=== PATIENT | female | born 1975 | race Caucasian/White ===

== ENCOUNTER 2021-10-07 17:30 | Emergency (ER) | payer MEDICAID ==
[~2021-10-07] VITALS: Ht 165.1 cm; Wt 80.0 kg
[2021-10-07] MEDS ORDERED: ATOR10TA84 PO (17:36)
[2021-10-07] MEDS ORDERED: LISI-892 PO (17:36)
[2021-10-07] MEDS ORDERED: LEVO25TA9 PO (17:36)
[2021-10-07] MEDS ORDERED: METF-1211 PO (17:36)
[2021-10-07] MEDS ORDERED: PANT-31 PO (17:36)
[2021-10-07 18:36] LABS: BASOPHILS % (AUTO) 0.4 % (0.0-2.0); EOSINOPHILS % (AUTO) 1.3 % (1.0-6.0); HEMATOCRIT 37.1 % (36-46); HEMOGLOBIN 11.9 g/dL (12.0-16.0); LYMPHOCYTES # (AUTO) 1.8 K/uL (1.0-4.8); LYMPHOCYTES % (AUTO) 22.5 % (22.0-44.0); MEAN CORPUSCULAR HEMOGLOBIN 25.7 pg (26.0-34.0); MEAN CORPUSCULAR HGB CONC 32.2 G/dL (31.0-37.0); MEAN CORPUSCULAR VOLUME 80 fL (80-100); MONOCYTES # (AUTO) 0.6 K/uL (0.1-1.0); MONOCYTES % (AUTO) 7.5 % (2.0-9.0); NEUTROPHILS # (AUTO) 5.4 K/uL (1.8-7.7); NEUTROPHILS % (AUTO) 68.3 % (40.0-70.0); PLATELET COUNT (AUTO) 321 K/uL (150-450); RED BLOOD CELL COUNT(AUTO) 4.64 MIL/uL (4.00-5.20); RED CELL DISTRIBUTION WIDTH 19.7 % (11.5-14.5)
[2021-10-07 18:42] LABS: APPEARANCE,URINE CLEAR (CLEAR); BILIRUBIN,URINE NEGATIVE (NEGATIVE); GLUCOSE, URINE (UA) NEGATIVE (NEGATIVE); KETONES,URINE NEGATIVE (NEGATIVE); LEUKOCYTE ESTERASE ,URINE NEGATIVE (NEGATIVE); NITRATE,URINE NEGATIVE (NEGATIVE); OCCULT BLOOD,URINE NEGATIVE (NEGATIVE); PH,URINE 5.5 (5.0-8.0); PROTEIN,URINE TRACE mg/dL (NEGATIVE); SPECIFIC GRAVITIY, URINE 1.019 (1.003-1.030); UROBILINOGEN,URINE <=1.0 mg/dL (<=1.0)
[2021-10-07 18:48] LABS: ANION GAP 9 mmol/L (8-16); CALCIUM, TOTAL 9.7 mg/dL (8.8-10.5); CARBON DIOXIDE 27 mmol/L (22-29); CHLORIDE 102 mmol/L (98-107); CREATININE 0.65 mg/dL (0.60-1.30); GLUCOSE,RANDOM 142 mg/dL (70-110); SODIUM SERUM 138 mmol/L (136-145); UREA NITROGEN, BLOOD 7 mg/dL (7-18)
[2021-10-07 18:52] LABS: GLOMERULAR FILTR. RATE CALC > 60 mL/min (>60)
[2021-10-07 18:53] LABS: ALANINE AMINOTRANSFERASE 46 U/L (12-78); ALBUMIN 3.9 g/dL (3.4-5.0); ALKALINE PHOSPHATASE 108 U/L (46-116); ASPARTATE AMINOTRANSFERASE 40 U/L (15-37); BILIRUBIN,TOTAL 0.2 mg/dL (0.1-1.0); LIPASE 131 U/L (73-393)
[2021-10-07 19:04] LABS: BACTERIA,URINE None Seen /HPF (None Seen); RBC,URINE None Seen /HPF (0-2); WBC,URINE None Seen /HPF (0-5)
[2021-10-07] MEDS ORDERED: PB/HYOSCY/ATR/SCOP/LIDO/MAALOX 55 ML BOTTLE PO ONE (19:15)
[2021-10-07 21:04] VITALS: BP 143/72
[2021-10-07] MEDS ORDERED: ACET-66 PO (21:40)
[2021-10-07] MEDS ORDERED: ONDA-104 PO (21:40)
== END 2021-10-07 22:32 | disposition home or self-care (01) ==
LOC: EMS 17:33
DX: K76.0 Fatty (change of) liver, not elsewhere classified (principal); E11.9 Type 2 diabetes mellitus without complications; E78.00 Pure hypercholesterolemia, unspecified; F10.20 Alcohol dependence, uncomplicated; K80.50 Calculus of bile duct without cholangitis or cholecystitis without obstruction; Z88.2 Allergy status to sulfonamides
CPT/HCPCS: 71045; 76700; 80053; 81001; 83690; 84703; 85025; 93005; 99285; 36415-L1; 36415-TC

== ENCOUNTER 2024-08-13 21:50 | Emergency (ER) | payer MEDICAID, OTHER ==
[~2024-08-13] VITALS: Ht 165.1 cm; Wt 75.0 kg
[~2024-08-13 21:50] MED LIST: ACET-66 PO; ATOR10TA PO; LEVO25TA9 PO; LISI-892 PO; METF-1211 PO; ONDA-104 PO; PANT-31 PO
[2024-08-13 22:02] VITALS: TEMP 98.1
[2024-08-13] MEDS ORDERED: LISI-661 PO (22:10)
[2024-08-13] MEDS ORDERED: LEVO50 PO (22:10)
[2024-08-13] MEDS ORDERED: METF-1211 PO (22:10)
[2024-08-14 00:37] VITALS: BP 130/85; PULSE 74; RESP 16; O2SAT 99
[2024-08-14] MEDS: IBUPROFEN 400 MG TABLET PO ONE (01:15)
[2024-08-14] MEDS: ACETAMINOPHEN 500 MG TABLET PO ONE (01:16)
[2024-08-14] MEDS: METOCLOPRAMIDE HCL 10 MG TABLET PO ONE (01:16)
[2024-08-14 02:14] LABS: APPEARANCE,URINE CLEAR (CLEAR); BILIRUBIN,URINE NEGATIVE (NEGATIVE); COLOR,URINE LIGHT YELLOW (YELLOW); GLUCOSE, URINE (UA) >=1000 mg/dL (NEGATIVE); KETONES,URINE NEGATIVE (NEGATIVE); LEUKOCYTE ESTERASE ,URINE NEGATIVE (NEGATIVE); NITRATE,URINE NEGATIVE (NEGATIVE); OCCULT BLOOD,URINE LARGE (NEGATIVE); PROTEIN,URINE TRACE mg/dL (NEGATIVE); UROBILINOGEN,URINE <=1.0 mg/dL (<=1.0)
[2024-08-14 02:36] LABS: BACTERIA,URINE None Seen /HPF (None Seen); SQUAMOUS EPITHELIAL CELL,UR Few /LPF (None Seen); WBC,URINE None Seen /HPF (0-5)
== END 2024-08-14 04:27 | disposition home or self-care (01) ==
LOC: EMS 21:50
DX: R51.9 Headache, unspecified (principal); M54.2 Cervicalgia; R11.0 Nausea; R30.0 Dysuria; E03.9 Hypothyroidism, unspecified; E11.9 Type 2 diabetes mellitus without complications; E78.00 Pure hypercholesterolemia, unspecified; Z88.1 Allergy status to other antibiotic agents; Z88.2 Allergy status to sulfonamides; Z79.84 Long term (current) use of oral hypoglycemic drugs; Z79.899 Other long term (current) drug therapy
CPT/HCPCS: 81001; 99284; Z7502; Z7610